=== PATIENT | male | born 1985 ===

== ENCOUNTER 2024-11-08 10:35 | Day surgery (SDC) | payer OTHER ==
[2024-11-08] MEDS ORDERED: TYLENOL ARTHRI650 MG PO (12:14)
[2024-11-08] MEDS ORDERED: CEPHALEXIN500 MG PO (12:14)
[2024-11-08] MEDS ORDERED: CEFAZOLIN SODIUM 1,000 MG VIAL IV ONE (14:30)
[2024-11-08] MEDS ORDERED: BUPIVACAINE HCL 30 ML VIAL IJ ONE (14:30)
[2024-11-08] MEDS ORDERED: LIDOCAINE HCL 1%/EPINEPHRINE 20ML VIAL IJ ONE (14:30)
== END 2024-11-08 16:25 | disposition home or self-care (01) ==
LOC: CIR.AMB 10:35
PROVIDERS: ATTEND Surgery
DX: D21.6 Benign neoplasm of connective and other soft tissue of trunk, unspecified (principal); D49.2 Neoplasm of unspecified behavior of bone, soft tissue, and skin